=== PATIENT | male | born 1990 | race Caucasian/White ===

== ENCOUNTER 2023-08-05 18:55 | Observation (INO) | payer SELFPAY ==
[~2023-08-05] VITALS: Ht 188 cm; Wt 104.8 kg
[2023-08-05 19:34] LABS: BASOPHILS 0.8 % (0-2); EOSINOPHILS 0.6 % (0-6); HEMOGLOBIN 12.9 g/dL (12.0-18.0); LYMPHOCYTES 27.1 % (24-44); MCH 28.5 (27-36); MCV 81.4 fl (81-99); MONOCYTES 14.1 % (0-12); NEUTROPHILS 57.4 % (39-80); PLATELET COUNT 222 K/uL (140-440); RBC 4.54 M/ul (4.3-5.7)
[2023-08-05 19:36] LABS: BILIRUBIN, URINE POSITIVE (negative); BLOOD/HGB, URINE SMALL (Negative); KETONE, URINE SMALL (Negative); LEUK ESTERASE, URINE NEGATIVE (negative); NITRITE, URINE NEGATIVE (negative)
[2023-08-05 19:39] LABS: EPITHELIAL CELLS, URINE SQUAMOUS 1+ /lpf (0-1+); REFLEX CULTURE, URINE No (No)
[2023-08-05 19:41] LABS: INR 1.05 (0.80-1.30); PROTIME 13.2 Sec (11.2-14.2)
[2023-08-05 19:43] LABS: LACTIC ACID, BLOOD 0.6 mmol/L (0.4-2.0)
[2023-08-05 19:46] LABS: ALBUMIN 3.2 g/dL (3.4-5.0); ALBUMIN/GLOBULIN RATIO 0.91 (1.1-2.4); ANION GAP 13.5 (7-21); BILIRUBIN, TOTAL 0.9 ng/dL (0.2-1.0); BUN/CREATININE RATIO 12.22 (6.0-28.6); CALCIUM 8.4 mg/dL (8.5-10.1); CREATININE, SERUM 0.9 mg/dL (0.70-1.30); POTASSIUM 3.5 mmol/L (3.5-5.1); PROTEIN, TOTAL 6.7 g/dL (6.4-8.2)
[2023-08-05 20:14] LABS: INFLUENZA B NAA NEGATIVE (NEGATIVE); RESPIRATORY SYNCYTIAL VIR NAA NEGATIVE (NEGATIVE)
[2023-08-06 00:29] VITALS: BP 125/77
--- NOTE | 2023-08-06 01:07 | NUR ---
PATIENT ARRIVED FROM THE ED. TRANSFERED INDEPENDETLY TO THE BED. PATIENT IS AAOX4. STEADY ON HIS FEET. DENIES PAIN OR NAUSEA AT THIS TIME. VS STABLE. ORAL TEMP WNL. IV SITE WNL; IV ABX INFUSING. SECOND BAG OF FLAGY WAS ACCIDENTLLY SPILLED PRIOR TO ARRIVAL; THEREFORE AN ADDITIONAL BAG OF 500 MG ORDERED TO COMPLETE 1000 MG FLAGY. IV FLUIDS STARTED PER ORDER. PATIENT ASSESSMENT OVERALL WNL. PATIENT PROVIDED WITH CALL LIGHT. AWARE OF NPO STATUS.
[2023-08-06 05:16] LABS: BASOPHILS 0.4 % (0-2); EOSINOPHILS 1.6 % (0-6); HEMATOCRIT 35.8 % (35.0-50.0); HEMOGLOBIN 12.3 g/dL (12.0-18.0); LYMPHOCYTES 24.9 % (24-44); MCH 28.5 (27-36); MCHC 34.4 g/dl (30-36); MCV 82.7 fl (81-99); MONOCYTES 18.2 % (0-12); NEUTROPHILS 54.9 % (39-80); PLATELET COUNT 185 K/uL (140-440); RBC 4.32 M/ul (4.3-5.7); RDW 13.3 (10.5-15.0)
[2023-08-06 05:31] LABS: ALBUMIN 2.9 g/dL (3.4-5.0); ALBUMIN/GLOBULIN RATIO 0.91 (1.1-2.4); ANION GAP 11.1 (7-21); BILIRUBIN, TOTAL 0.7 ng/dL (0.2-1.0); BUN/CREATININE RATIO 13.75 (6.0-28.6); CALCIUM 8.4 mg/dL (8.5-10.1); CREATININE, SERUM 0.8 mg/dL (0.70-1.30); MAGNESIUM 1.9 mg/dL (1.8-2.4); POTASSIUM 4.1 mmol/L (3.5-5.1); PROTEIN, TOTAL 6.1 g/dL (6.4-8.2)
--- NOTE | 2023-08-06 07:07 | NUR ---
NO SIGNIFICANT CHANGES OVER UNIT NURSE, VSS, RECEIVING CONTINUOUS FLUIDS, DENIES PAIN AT THIS TIME, AFEBRILE
--- NOTE | 2023-08-06 07:30 | NUR ---
REPORT RECEIVED. PATIENT IS RESTING IN BED. IVF PATENT.
--- NOTE | 2023-08-06 08:00 | NUR ---
ASSESSMENT DONE. TALKED WITH PATIENT ABOUT POC FOR DAY. PATIENT IS UNDERSTANDING.
--- NOTE | 2023-08-06 08:30 | NUR ---
CHILLING, TYLENOL 650 MG PO GIVEN. TEMP-100.7 AX.
--- NOTE | 2023-08-06 09:00 | NUR ---
DR. JOHNSON HERE TO SEE PATIENT. WILL CONSULT DR. ALANIS ON THIS CASE.
[2023-08-06 11:59] VITALS: BP 125/76
--- NOTE | 2023-08-06 12:00 | NUR ---
LR BOLUS GIVEN. MD SAID TO RUN IN THE REMAINDER OF THE CURRENT IVF BAG.
--- NOTE | 2023-08-06 13:20 | NUR ---
DR. ALANIS SAID IF IT IS OKAY WITH DR. JOHNSON, PATIENT COULD BE DISCHARGED. ACCORDING TO PROGRESS NOTE MEDICAL DOCTORS ARE SIGNING OFF CASE. WILL NOTIFY DR. JOHNSON REGARDING THIS. BOLUS COMPLETE. VOID VERY DARK TEA COLORED URINE.
[2023-08-06] MEDS ORDERED: ONDANSETRON ODT8 MG PO (16:37)
[2023-08-06 16:49] VITALS: BP 120/67
--- NOTE | 2023-08-06 17:30 | NUR ---
DR. JOHNSON AWARE THAT PATIENT WILL STAY HOSPITALIZED TODAY. ORDERS RECEIVED TO INCREASE DIET TO TOLERATED. PATIENT TOLERATED SHOWER WELL. NOW IN SITTING UP IN CHAIR FOR DINNER.
--- NOTE | 2023-08-06 18:15 | NUR ---
TOOK DINNER FAIR. RESTING IN CHAIR.
--- NOTE | 2023-08-06 19:57 | NUR ---
RECEIVED REPORT FROM TIAGO NGUYEN; PT IS CURRENTLY IN BED, A&O, VSS, DENIES PAIN AT THIS TIME, AFEBRILE
[2023-08-06 21:00] VITALS: BP 127/73
--- NOTE | 2023-08-06 23:35 | NUR ---
PT RESTING COMFORTABLY, DENIES ANY NEEDS AT THIS TIME
[2023-08-07 04:56] VITALS: BP 117/91
--- NOTE | 2023-08-07 04:58 | NUR ---
PT HAS BEEN COUGHING INTERMITTENTLY THROUGHOUT DOCUMENTATION CONSULTANT WITH INTERMITTENT NAUSEA, OFFERED PRN MEDICATION BUT PT DENIED, DENIES PAIN AT THIS TIME, CALL LIGHT WITHIN REACH
[2023-08-07 05:21] LABS: BASOPHILS 0.8 % (0-2); EOSINOPHILS 1.2 % (0-6); HEMATOCRIT 34.5 % (35.0-50.0); HEMOGLOBIN 12.4 g/dL (12.0-18.0); LYMPHOCYTES 23.7 % (24-44); MCH 29.1 (27-36); MCHC 35.8 g/dl (30-36); MCV 81.3 fl (81-99); MONOCYTES 16.6 % (0-12); NEUTROPHILS 57.7 % (39-80); PLATELET COUNT 226 K/uL (140-440); RBC 4.24 M/ul (4.3-5.7); RDW 13.1 (10.5-15.0)
[2023-08-07 05:37] LABS: MAGNESIUM 1.6 mg/dL (1.8-2.4); PHOSPHORUS, INORGANIC 2.5 mg/dL (2.5-4.9)
--- NOTE | 2023-08-07 05:55 | EKG ---
[facility] [address] [facility] [place], [place] [address] Signed Normal sinus rhythm T wave abnormality, consider inferolateral ischemia T wave inversion in V-4-6 and II,III, avf Abnormal ECG No previous ECGs available Confirmed by PAU OREILLY MD ([id number]) on 08/07/2023 5:54:53 AM Electronically Signed By: PAU OREILLY 08/07/23 0555 PATIENT NAME: JASSON ELLISZachary CORONADO Electrocardiogram DATE OF : [birth year] PHYSICIAN: PAU OREILLY REPORT #: [id number] REPORT IS CONFIDENTIAL AND NOT TO BE RELEASED WITHOUT AUTHORIZATION
--- NOTE | 2023-08-07 06:38 | CONS ---
[facility] [address] [place], [place] [address] Signed DATE OF CONSULTATION: 08/06/2023 CHIEF COMPLAINT: Generalized abdominal pain. 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 He has been having trouble for two weeks with headaches, fevers, nausea, vomiting, and diarrhea. He takes some Tylenol or ibuprofen, breaks the fever and he feels better. His thinks maybe she had something similar a week or so ago. He was not feeling good, so he came in to our emergency room for evaluation. In the emergency room, his white count is actually almost below normal at 4.8. Neutrophils are low at 54, but his monocytes are up at 18. Total bilirubin is normal, but his AST, ALT, and alkaline phosphatase are up just slightly. His albumin is on the lower side. COVID was negative. His lactic acid was negative and blood cultures have been sent and they are pending. He had an initial chest x-ray which was unremarkable. A CT scan of abdomen and pelvis was done. He has very mild edema in the gallbladder wall throughout the periportal tracts of his liver. His spleen is actually slightly enlarged at 17.6 cm. I had been called in the middle of the night by the ER physician with respect to Alanna. We went ahead and admit him overnight, some IV fluids and some Rocephin and Flagyl. This morning, the fever is gone and he looks and feels much better. His is in the room. In the meantime, she has sent some of his lab work and so forth to their friend who is in the ER doctor down in [place]. He is in agreement this does not appear to be straightforward cholecystitis. This seems to be more viral. PAST MEDICAL HISTORY: None. PAST SURGICAL HISTORY: Hand surgery. SOCIAL HISTORY: He does not smoke. He drinks occasionally. He is to his Leslie at [phone]. They have four children. They live in [place], [place]. He does not appear to have a primary care provider, but I suspect the family has someone. FAMILY HISTORY: None. REVIEW OF SYSTEMS: He had 10 systems reviewed and nothing new to add. Electronically Signed By: NICOLE MORENO MD 08/07/23 0638 PATIENT NAME: ALANNA ELLIS CONSULTATION DATE OF : [birth year] REPORT #: [id number] PHYSICIAN: NICOLE MORENO MD PCP: NO PRIMARY CARE PHYSICIAN REPORT IS CONFIDENTIAL AND NOT TO BE RELEASED WITHOUT AUTHORIZATION [facility] [address], [place] [address] Signed ALLERGIES: None. MEDICATIONS: None. PHYSICAL EXAMINATION: VITAL SIGNS: His blood pressure is 117/68, his heart rate is 58, his respiratory rate is 16, temperature is 97.8. He is 99% on room air. He is 6 feet 2 inches tall at 104 kg with a body mass index of 29. GENERAL: Alanna is a 32-year-old gentleman who does not appear systemically ill or toxic. He is lying supine in his hospital bed. His is with him. Our nurse is in the room. LUNGS: Clear to auscultation bilaterally. HEART: Regular rate and rhythm without murmur. ABDOMEN: Soft, flat and nontender. LABORATORY DATA: His white blood cell count was 4.9, it is now 5.5, his hemoglobin is 12, neutrophils are 54, his monocytes are up at 18. Electrolytes are unremarkable. Total bilirubin is 0.7, AST 57, ALT 90, alkaline phosphatase 123, albumin is 2.9. Hepatitis A, B, C panel is pending. COVID is negative. Lactic acid was negative at 0.6. Blood cultures have been sent and of course were pending. RADIOGRAPHIC STUDIES: Chest x-ray is reviewed and it is unremarkable. The CT scan of abdomen and pelvis also shows very mild edema in the gallbladder wall as well as the periportal tracts in the liver. His spleen is enlarged at 17.6 cm. ASSESSMENT AND PLAN: Alanna is a 32-year-old gentleman, who presents with what appears to be more of a viral etiology. He may very well have mono, although he is not completely tired and wiped out. We have ordered a Monospot test. We are also going to consult our hospitalist, who happens to be a long-standing family medicine doctor. I think for now we are going to hold off on removing his gallbladder. With his enlarged spleen and if in fact he has mono, he needs to not participate in the rodeo. I have reviewed this with Alanna, his as well as our nurse and our hospitalist, Dr. Quiros. They are all in agreement. I will go ahead and put orders in for him for clear liquid diet and wait for our consult from Dr. Quiros. Nicole Moreno MD Electronically Signed By: NICOLE MORENO MD 08/07/23 0638 PATIENT NAME: RHONDA,CHANT CLIFF CONSULTATION DATE OF : 89 REPORT #: [id number] PHYSICIAN: NICOLE MORENO MD PCP: NO PRIMARY CARE PHYSICIAN REPORT IS CONFIDENTIAL AND NOT TO BE RELEASED WITHOUT AUTHORIZATION [address] [place], [place] [address] Signed ALB/MODL /[id number] cc: Nicole Moreno MD Copies: NICOLE MORENO MD ~ Electronically Signed By: NICOLE MORENO MD 08/07/23 0638 PATIENT NAME: ALANNA ELLIS CONSULTATION DATE OF : [birth year] REPORT #: [id number] PHYSICIAN: NICOLE MORENO MD PCP: NO PRIMARY CARE PHYSICIAN REPORT IS CONFIDENTIAL AND NOT TO BE RELEASED WITHOUT AUTHORIZATION
--- NOTE | 2023-08-07 07:30 | NUR ---
REPORT RECEIVED. PATIENT IS RESTING IN BED. NO DISTRESS NOTED.
[2023-08-07 08:00] VITALS: BP 127/66
--- NOTE | 2023-08-07 08:00 | NUR ---
ASSESSMENT DONE. PATEINT TALKED ABOUT HIS COUGH HE HAD LAST NIGHT. NO COUGHING NOTED AT THIS TIME. C/O OCAMPO AND PRESSURE BEHIND EYES. DENIES OTHER PAIN. WILL MEDICATE WITH MOTRIN. C/O LEFT ANTERIOR CHEST DISCOMFORT. PATIENT WILL HAVE CT OF CHEST THIS AM. URINE IS DARK IN COLOR. HAS BEEN AMBULATING TO BR TO VOID IN URINAL. HAD A MEDIUM SIZE BM VERY SOFT AND FOUL SMELLING. COLLECTED THIS STOOL, WILL ASK MD IF WANTS STOOL CULTURE.
--- NOTE | 2023-08-07 08:30 | NUR ---
DR. COLEMAN AWARE OF STOOL COLLECTED. NO LABS ON STOOL ORDERED BY MD. STOOL SAMPLE DISCARDED.
--- NOTE | 2023-08-07 08:40 | NUR ---
TO CT VIA W/C.
--- NOTE | 2023-08-07 09:00 | NUR ---
RETURN TO CCU. PATIENT FAMILY MEMBERS IN ROOM. PATIENT CONTINUES TO HAVE OCAMPO.
--- NOTE | 2023-08-07 10:56 | NUR ---
RESTING NOW. DR. JOHNSON ORDERING US OF ABD, LIVER AND GALLBLADDER.
--- NOTE | 2023-08-07 11:24 | NUR ---
PT DENIED NEEDS. ACCEPTED OFFER OF GUIDEPOST. CONSENTED TO PRAYER. PRAYED FOR DISCERNMENT, PATIENCE AND PERSEVERENCE.
[2023-08-07] MEDS ORDERED: ONDANSETRON ODT8 MG PO (11:32)
[2023-08-07] MEDS ORDERED: ACETAMINOPHEN500 MG PO (11:32)
[2023-08-07 12:47] VITALS: BP 115/72
--- NOTE | 2023-08-07 13:03 | NUR ---
ENTERED THE PATIENT'S ROOM TO DISCUSS THE DISCHARGE PLAN. PATIENT IS SLEEPING. UNABLE TO DO THE DISCHARGE PLAN AT THIS TIME. PER WENDY ORDOÑEZ. PATIENT PLANS TO DC TO [place] UNTIL ROUND-UP IS OVER AND THEN PATIENT WILL GO HOME TO [place] AND FIND A DOCTOR.
--- NOTE | 2023-08-07 14:50 | NUR ---
US COMPLETE. DR. JOHNSON AND DR. COLEMAN AWARE, OKAY TO DISCHARGE TO HOME.
--- NOTE | 2023-08-07 15:00 | NUR ---
DISCHARGE INSTRUCTIONS GIVEN WITH PATIENT UNDERSTANDING.
--- NOTE | 2023-08-07 15:55 | NUR ---
DISCHARGED TO HOME.
[2023-08-07 21:17] LABS: CMV QNT BY NAAT, PL LOG IU/ML Not Detected (()); CMV QNT BY NAAT, PLASMA INTERP Not Detected (Not Detected); CMV QNT BY NAAT, PLASMA IU/ML Not Detected (())
[2023-08-07 21:21] LABS: HEPATITIS A ANTIBODY, IGM Negative (Negative); HEPATITIS B CORE ANTIBODY, IGM Negative (Negative); HEPATITIS B SURFACE ANTIGEN Negative (Negative); HEPATITIS C AB CIA INTERP Negative (Negative); HEPATITIS C ANTIBODY CIA INDEX 0.11 IV (())
[2023-08-08 17:37] LABS: ANTI-NUCLEAR AB ANA,IGG ELISA None Detected (None Detected)
== END 2023-08-07 15:55 | disposition home or self-care (01) ==
LOC: ED 18:55 → CCU 18:58
PROVIDERS: Family Medicine; ADMIT Colon & Rectal Surgery; ATTEND Colon & Rectal Surgery
DX: R16.1 Splenomegaly, not elsewhere classified (principal); R50.9 Fever, unspecified; R51.9 Headache, unspecified; R74.01 Elevation of levels of liver transaminase levels; Z20.822 Contact with and (suspected) exposure to COVID-19
CPT/HCPCS: 36415; 71045; 71260; 74177; 76705; 80053; 80074; 81001; 83605; 83735; 84100; 85025; 85610; 85651; 86038; 86140; 86308; 87502; 93005; 93010; A9270; C9803; J0696; J2405; J3475; J7121; Q9967; U0002